=== PATIENT | female | born 1980 | race Caucasian/White ===

== ENCOUNTER → 2017-04-25 | Outpatient (CLI) | payer BC ==
[~2017-04-25] MED LIST: ACET325T96 PO; CEPH500C2 PO; CETI10TA84 PO; DROS1TAB24 PO; HYDR-3419 PO; IBUP-1050 PO; MULT-506 PO; OMEP40CA PO; OXYC-57 PO; PRLSR20 PO; RANI300T2 PO; SERT50TA PO
== END | disposition home or self-care (01) ==
LOC: C.PAPS 14:46
PROVIDERS: ATTEND Obstetrics & Gynecology
DX: Z01.419 Encounter for gynecological examination (general) (routine) without abnormal findings (principal)

== ENCOUNTER 2017-06-09 07:50 | Observation (INO) | payer BC ==
[2017-05-27 09:40] VITALS: BMI 32.0
--- NOTE | 2017-05-27 10:00 | PAT Medication Instructions ---
Service Date May 27, 2017. Current Home Medication List Acetaminophen Tab (Tylenol), 650 MG PO PRN Cetirizine (Zyrtec), 10 MG PO QAM PRN for RN Drospirenone-Ethinyl Estradiol (Corina), 1 TAB PO QAM Ibuprofen (Advil), 400 MG PO PRN Multivitamin (Multivitamin), 1 TAB PO QAM Omeprazole (Prilosec), 20 MG PO QAM Ranitidine Hcl (Zantac), 300 MG PO HS Sertraline (Zoloft), 50 MG PO QAM Medication Instructions For Your Scheduled Surgery - Check with surgeon for instructions: Ibuprofen (Advil), 400 MG PO PRN Drospirenone-Ethinyl Estradiol (Corina), 1 TAB PO QAM - Hold the following medications the morning of surgery: Multivitamin (Multivitamin), 1 TAB PO QAM Cetirizine (Zyrtec), 10 MG PO QAM PRN for RN - Take the following medications the morning of surgery with a sip of water: Acetaminophen Tab (Tylenol), 650 MG PO PRN (if needed) Omeprazole (Prilosec), 20 MG PO QAM Sertraline (Zoloft), 50 MG PO QAM - Take the following medications as scheduled the night before surgery: Ranitidine Hcl (Zantac), 300 MG PO HS Cetirizine (Zyrtec), 10 MG PO QAM PRN for RN (if needed) If you have any questions please call us at [phone] or [phone] or [phone]
[2017-05-27 10:27] LABS: BASO % 0.9 %; BASO ABS # 0.05 K/uL (0-0.2); COMPLETE YES; EOS % 1.4 %; HEMATOCRIT 35.2 % (37-47); IG% 0.2 %; LYMPH ABS # 1.78 K/uL (1.2-3.4); MEAN CELL VOLUME 86.1 fL (80-100); MEAN CORPUSCULAR HEMOGLOBIN 28.1 pg (25-34); MEAN CORPUSCULAR HGB CONC 32.7 g/dl (32-36); MEAN PLATELET VOLUME 9.6 fL (7.4-10.4); MONO % 5.2 %; NEUT % 61.3 %; PLATELET COUNT 314 K/uL (130-400); RED BLOOD COUNT 4.09 M/uL (4.2-5.4); WHITE BLOOD COUNT 5.75 K/uL (4.8-10.8)
--- NOTE | 2017-05-27 10:29 | DIAGNOSTIC IMAGING REPORT ---
CHEST 2 VIEWS ROUTINE CLINICAL HISTORY: 37 years-old Female presenting with preoperative assessment. TECHNIQUE: PA and lateral views of the chest were obtained. COMPARISON: None. FINDINGS: Cardiomediastinal silhouette normal. Lungs and pleural spaces clear. Osseous structures normal. Upper abdomen normal. IMPRESSION: 1. No acute cardiopulmonary disease. Electronically signed by: Elías Chamberlain M.D. 05/27/2017 10:27 AM Dictated Date/Time: 05/27/2017 10:27 AM
[2017-05-27 10:46] LABS: BUN/CREATININE RATIO 15.3 (10-20); CALCIUM 8.5 mg/dl (8.5-10.1); CREATININE 0.8 mg/dl (0.60-1.20)
[~2017-06-09] VITALS: Ht 170.2 cm; Wt 94.6 kg
[2017-06-09] VITALS (7 sets, daily range): BP systolic 101–131; BP diastolic 63–81; PULSE 55–70; TEMP 36.7–37; O2SAT 96–100; Ht 170.2 cm; Wt 94.6 kg
[~2017-06-09 07:50] MED LIST changes: +ATROPINE SULFATE 0.1 MG/ML 5ML SYR IV PRN; -CEPH500C2 PO; +EpHEDrine SULFATE INJ 50 MG/ML AMP IV PRN; +FENTANYL CITRATE INJ 50 MCG/1 ML 2 ML VIAL IV PRN; -HYDR-3419 PO; +HYDROmorphone INJ 1 MG/ML SYR IV PRN; +LACTATED RINGER'S 1000ML IV SCH; -OMEP40CA PO; +ONDANSETRON INJ 2 MG/ML 2 ML VIAL IV PRN; -OXYC-57 PO; +PROMETHAZINE HCL INJ 12.5 MG in SODIUM CHLORIDE 0.9% 50ML 50 ML IV PRN; +SCOPOLAMINE 1.5 MG TDSY TD SCH
[2017-06-09] MEDS ORDERED: FAMOTIDINE 10 MG/ML 2ML VIAL IV STA (09:25)
[2017-06-09] MEDS ORDERED: METOCLOPRAMIDE HCL INJ 5 MG/ML 2 ML VIAL IV STA (09:25)
[2017-06-09 09:30] LABS: PREG INTERNAL NEGATIVE QC NEG CLEAR BACKGROUND; PREG INTERNAL POSITIVE QC POS CONTROL LINE
[2017-06-09] MEDS ORDERED: FAMOTIDINE IV INJ 20 MG in DEXTROSE 5% 100ML 100 ML IV ONE (09:45)
[2017-06-09] MEDS ORDERED: MIDAZOLAM HCL 1 MG/ML 2ML VIAL ONE (10:07)
--- NOTE | 2017-06-09 10:07 | History & Physical Bridge Note ---
H&P Re-Evaluation Bridge Note: I have examined the patient, reviewed the History & Physical and in the interval since the performance of the History & Physical I have noted the following changes of clinical significance: No changes noted pt marked at bedside all questions answered
[2017-06-09] MEDS ORDERED: HYDROmorphone INJ 2 MG/ML SYR/VIAL ONE (10:08)
[2017-06-09] MEDS ORDERED: FENTANYL CITRATE INJ 50 MCG/1 ML 2 ML VIAL ONE ×3 (10:08→11:53)
[2017-06-09] MEDS ORDERED: PROPOFOL IV EMULSION 10 MG/ML 20 ML VIAL IV ONE ×4 (10:59→11:50)
[2017-06-09] MEDS ORDERED: DEXAMETHASONE SOD INJ 4 MG/ML VIAL ONE (11:00)
[2017-06-09] MEDS ORDERED: ONDANSETRON INJ 2 MG/ML 2 ML VIAL ONE (11:00)
[2017-06-09] MEDS ORDERED: BACITRACIN 50000 UNIT VIAL ONE (11:30)
[2017-06-09] MEDS ORDERED: BUPIVACAINE 0.5 % 5 MG/1 ML MPF 30ML VIAL ONE (11:49)
[2017-06-09] MEDS ORDERED: OXYC-57 PO (12:08)
--- NOTE | 2017-06-09 12:10 | Discharge Instructions ---
Discharge Instructions Date of Service Jun 09, 2017. Admission Reason for Admission: Abdominal Mass Discharge Discharge Diagnosis / Problem: Excision of mass, repair with mesh Discharge Goals Goal(s): Decrease discomfort Activity Recommendations Activity Limitations: as noted below Lifting Limitations: no more than 10 pounds Shower/Bathe: tomorrow Driving or Machine Use: 5 days . Instructions / Follow-Up Instructions / Follow-Up Dr. Man office to have drain removed on Tuesday (if not already removed in hospital), call [phone] Current Hospital Diet Patient's current hospital diet: Clear Liquid Diet Discharge Diet Recommended Diet: Regular Diet Procedures Procedures Performed: Exploratory Laparotomy, Resection of abdominal mass and peritoneal implant, repair of incisional hernia with mesh Pending Studies Studies pending at discharge: no Medical Emergencies . Who to Call and When: Medical Emergencies: If at any time you feel your situation is an emergency, please call 911 immediately. . Non-Emergent Contact Non-Emergency issues call your: Surgeon Call Non-Emergent contact if: you have a fever, temperature is above 101.5, your pain is not controlled, wound has increased redness, you have any medication questions . "Provider Documentation" section prepared by Ever Cadena. . VTE Core Measure Inpt VTE Proph given/why not?: SCD's
[2017-06-09] MEDS ORDERED: ONDANSETRON INJ 2 MG/ML 2 ML VIAL IV PRN (12:15)
[2017-06-09] MEDS ORDERED: MoRPHine SULFATE 4 MG/ML 1 ML CARP\\VIAL IV PRN (12:15)
[2017-06-09] MEDS ORDERED: OXYCODONE/ACETAMINOPHEN 5-325 TAB PO PRN (12:15)
--- NOTE | 2017-06-09 12:25 | [facility] Operative Report ---
Operative Report Operative Date Jun 09, 2017. Pre-Operative Diagnosis Abdominal Mass Post-Operative Diagnosis Same Procedure(s) Performed Exploratory Laparotomy, Resection of abdominal mass and peritoneal implant, repair of incisional hernia with mesh Surgeon Dr Man Certified Physician'S Assistant Surgeon(s) Ever Cadena PA-C Estimated Blood Loss 10ml Findings maureen 10 cm hard mass abdominal wall suprapubic extraperitoneal and endometrial implant Specimens A. Peritoneal implant Frozen section #1 abdominal wall mass sent out at 1208 Drains 19 tristian per stab Description of Procedure or summary dictated at ext 2313 confirmation number [id number] I attest to the content of the Intraoperative Record and any orders documented therein. Any exceptions are noted below.
[2017-06-09] MEDS ORDERED: IV FLUIDS COMPLETED PRN (12:30)
--- NOTE | 2017-06-09 12:53 | Anesthesiology Progress Note ---
Anesthesia Post Op Note Date & Time Jun 09, 2017 at 12:53 Vital Signs Pain Intensity: 0 Vital Signs Past 12 Hours Date Time Temp Pulse Resp B/P (MAP) Pulse Ox O2 Delivery O2 Flow Rate FiO2 06/09/17 12:45 65 16 136/85 99 Nasal Cannula 2 06/09/17 12:35 65 16 134/83 100 Oxymask 10 06/09/17 12:25 68 16 131/82 100 Oxymask 10 06/09/17 12:18 36.5 82 16 131/89 100 Oxymask 10 06/09/17 08:21 Room Air Notes Mental Status: alert / awake / arousable, participated in evaluation Pt Amnestic to Procedure: Yes Nausea / Vomiting: adequately controlled Pain: adequately controlled Airway Patency, RR, SpO2: stable & adequate BP & HR: stable & adequate Hydration State: stable & adequate Anesthetic Complications: no major complications apparent
[2017-06-09] MEDS: LACTATED RINGER'S 1000ML 1,000 ML IV SCH ×2 (14:09→23:09)
[2017-06-09] MEDS: KETOROLAC TROMETHAMINE 15 MG/ML VIAL IV PRN ×2 (15:07→23:09)
[2017-06-09] MEDS: CHECK SCOPOLAMINE PATCH PLACEMENT SCH (16:36)
[2017-06-09] MEDS ORDERED: NURSING DECISION MEDICATION ORDER SCH (20:00)
[2017-06-09] MEDS ORDERED: RANITIDINE HCL 150 MG TAB PO SCH (21:00)
[2017-06-09] MEDS ORDERED: ARTIFICIAL TEARS OP SOLN OP PRN ×2 (22:00)
--- NOTE | 2017-06-09 22:53 | OPERATIVE REPORT ---
DATE OF OPERATION: 06/09/2017 SURGEON: Fili Man MD [employer]IST: Ever Cadena PA-C PREOPERATIVE DIAGNOSIS: Lower abdominal wall mass, approximately 10 cm in diameter. POSTOPERATIVE DIAGNOSIS: Lower abdominal wall mass, approximately 10 cm in diameter. PROCEDURE PERFORMED: Resection of abdominal wall mass en bloc, resection of an endometrial implant, and reconstruction of abdominal wall with Marlex mesh. SUMMARY: The patient was brought into the operating room theater. Sahu catheter was inserted under general anesthetic. The abdomen was prepped with Betadine solution and properly draped. Systemic antibiotic was given. The patient had had a Pfannenstiel incision from previous surgery that had a hernia repair twice at another institution and recently, she had developed over a period of time of 6 months after initial abdominal wall reconstruction of hernia with mesh, an area of indurated in the suprapubic area enlarging to the point that it was so incapacitating that the patient cannot sit. On examination in the Pfannenstiel incision and just above that, she had a hard mass, very nonmobile this could have been a mesh granuloma or an endometrial implant. There was no evidence of any hernia, per se. Therefore, we made an incision through the previous incision, which extended about 8 cm or so. Essentially, I elliptically around it, so I was able to get away from the abdominal wall mass rather than cut into it. As we circumferentially dissected out a plane superior and inferiorly, superiorly, we were always intermediate up to the umbilical area, where we were encountered some midline sutures that appeared to be nylon sutures in nature. As we dissected down to the abdominal wall circumferentially along this mass. I could feel that the mass was well demarcated, very hard and most likely consistent with the previous mesh reinforcement. However, I was unsure as far as the extend Therefore, along the previously made exposure of the nylon sutures and the intermediate up the umbilical area, I elected to enter the peritoneal cavity there, which we did without any problem and placing a finger intraabdominally, I was able to free up this mass, which appeared to be extraperitoneally and extension into the subrectus spaces bilaterally. There was one area that had an implant that was consistent with an endometrioma. The area was approximately 3 mm in size and we excised that. We took and resected the mass en bloc, actually extended just to the symphysis pubis. Once we accomplished this, we were left with peritoneum. The rectus muscles were slightly , but not considerably defect. I debated whether or not to put a mesh intraabdominally or extraperitoneally, but I elected to place an extraperitoneal by closing the peritoneum with a chromic suture in a continuous fashion and then I reapproximated it to the rectus muscles, which the rectus sheath had previously been incised from previous surgeries and approximated lit loosely with absorbable sutures. At this point, I dissected out and scored laterally beyond the rectus fascia and anteriorly, bilaterally. I elected then to bring in a sheet of Marlex mesh. We had used about 3 inches x 6 inches, placed it transversely and sutured it firstly with 2-0 nylon suture at the edge of the rectus sheath in the midline and the extra overlapping area about 2 cm laterally on both sides, we overlapped and sutured onto the anterior rectus sheath more laterally. The repair appeared to be quite solid. I did make some relaxing incision well beyond the lateral attachment of the mesh to the rectus sheath. Topical antibiotics were used and I was used 20 mL of 0.5 Marcaine to the abdominal wall. A Tyrese drain was placed through a stab wound and the wound was closed 3-0 and 2-0 Dexon and austin for skin edges. Dressing was applied. The procedure was tolerated well by the patient. Estimated blood loss approximately 10 mL. The patient was taken to recovery room in good condition. I attest to the content of the Intraoperative Record and any orders documented therein. Any exceptions are noted below. NYDIA
[2017-06-10] MEDS: CHECK SCOPOLAMINE PATCH PLACEMENT SCH ×2 (00:10→07:38)
[2017-06-10 03:10] VITALS: BP 95/58; PULSE 68; TEMP 36.9; O2SAT 97
[2017-06-10 07:07] VITALS: BP 98/62; PULSE 61; TEMP 36.7; O2SAT 97
[2017-06-10] MEDS: KETOROLAC TROMETHAMINE 15 MG/ML VIAL IV PRN (07:32)
--- NOTE | 2017-06-10 07:32 | SURGERY PROGRESS NOTE ---
DATE: 06/10/2017 DATE: 06/10/2017 Dorita is resting comfortably this morning. She was a little bit nauseated during the night. She is alert, coherent. Intraoperative findings were discussed with her including the frozen section report of this being an endometrioma. The last vitals showed a temperature of 36.9, pulse 68, respiration 19, blood pressure 95/58. The abdomen is completely benign. Tyrese drainage had minimal drainage. We will remove that today. The incision looks intact. From my point of view, plan is to discharge the patient later today. Instructions were given regarding the restriction of weight no more than 10 pounds for approximately [address] probably in a day or so if she does not take any more analgesics and we will see her back in the office in 1 week. She can shower.
--- NOTE | 2017-06-10 07:52 | Anesthesiology Progress Note ---
Anesthesia Post Op Note Date & Time Jun 10, 2017 at 07:51 Vital Signs Vital Signs Past 12 Hours Date Time Temp Pulse Resp B/P (MAP) Pulse Ox O2 Delivery O2 Flow Rate FiO2 06/10/17 07:07 36.7 61 18 98/62 (74) 97 Room Air 06/10/17 03:10 36.9 68 16 95/58 (70) 97 Room Air 06/09/17 23:13 36.7 55 18 101/63 (76) 98 Room Air 06/09/17 22:50 Room Air 06/09/17 20:13 36.7 68 20 109/67 (81) 97 Room Air Notes Mental Status: alert / awake / arousable, participated in evaluation Pt Amnestic to Procedure: Yes Nausea / Vomiting: adequately controlled Pain: adequately controlled Airway Patency, RR, SpO2: stable & adequate BP & HR: stable & adequate Hydration State: stable & adequate Anesthetic Complications: no major complications apparent
[2017-06-10] MEDS ORDERED: SERTRALINE HCL 50 MG TAB PO SCH (09:00)
[2017-06-10] MEDS ORDERED: PANTOprazole SOD 40 MG TAB PO SCH (09:00)
[2017-06-10] MEDS: LACTATED RINGER'S 1000ML 1,000 ML IV SCH (09:19)
[2017-06-10 10:03] VITALS: BP 98/62; PULSE 61; TEMP 36.7; O2SAT 97
--- NOTE | 2017-06-14 09:14 | DISCHARGE SUMMARY ---
PRIMARY DISCHARGE DIAGNOSIS: Lower abdominal wall mass (10 cm) -- endometriosis. PROCEDURE PERFORMED: Resection of abdominal wall mass en bloc with reconstruction of abdominal wall with Marlex mesh and biopsy of peritoneal implant. HOSPITAL COURSE: The patient is a 37-year-old female with lower midline mass along Pfannenstiel scar admitted for excision. This involved abdominal wall and was reconstructed with Marlex mesh. Pathology later returned as endometriosis. She was transferred to the surgical floor for overnight observation. On postoperative day 1, she was tolerating diet and oral analgesics. Tyrese drainage was 20 cc and was removed. She was stable for discharge. Abdomen was soft. Incision was dry. DISCHARGE INSTRUCTIONS: Discharge home. Follow up with Dr. Man in 1 week. DISCHARGE MEDICATIONS: Percocet 1-2 tablets every 4 hours as needed. Continue home medications of Zyrtec 10 mg daily, Corina 1 tablet daily, Motrin 400 mg as needed, daily multivitamin, Prilosec 20 mg daily, Zantac 20 mg at bedtime, Zoloft 50 mg daily. Hold additional Tylenol products until she is finished with Percocet. MTDD
== END 2017-06-10 11:15 | disposition home or self-care (01) ==
LOC: C.ACU 07:50 → C.MSN 12:07 → ENRESERV 12:47
PROVIDERS: ADMIT Surgery; ATTEND Surgery
DX: R19.00 Intra-abdominal and pelvic swelling, mass and lump, unspecified site (principal); F41.9 Anxiety disorder, unspecified; K21.9 Gastro-esophageal reflux disease without esophagitis; K44.9 Diaphragmatic hernia without obstruction or gangrene; E66.9 Obesity, unspecified

== ENCOUNTER → 2018-04-13 | Outpatient (CLI) | payer OTHER, BC ==
[~2018-04-13] MED LIST changes: -ACET325T96 PO; -ATROPINE SULFATE 0.1 MG/ML 5ML SYR IV PRN; -EpHEDrine SULFATE INJ 50 MG/ML AMP IV PRN; -FENTANYL CITRATE INJ 50 MCG/1 ML 2 ML VIAL IV PRN; -HYDROmorphone INJ 1 MG/ML SYR IV PRN; -LACTATED RINGER'S 1000ML IV SCH; -ONDANSETRON INJ 2 MG/ML 2 ML VIAL IV PRN; -PROMETHAZINE HCL INJ 12.5 MG in SODIUM CHLORIDE 0.9% 50ML 50 ML IV PRN; -SCOPOLAMINE 1.5 MG TDSY TD SCH
== END | disposition home or self-care (01) ==
LOC: C.PAPS 14:49
PROVIDERS: ATTEND Obstetrics & Gynecology
DX: Z12.4 Encounter for screening for malignant neoplasm of cervix (principal)